=== PATIENT | male | born 1990 | race Caucasian/White ===

== ENCOUNTER 2020-11-07 20:20 | Emergency (ER) | payer MEDICAID ==
[~2020-11-07] VITALS: Ht 177.8 cm; Wt 90.9 kg
[2020-11-07 20:30] VITALS: BP 137/86
[2020-11-07] MEDS ORDERED: BUPIVACAINE HCL/PF 0.25% 10 ML VIAL SQ ONE (20:45)
[2020-11-07] MEDS ORDERED: PERTUSS(ACELL),DIPH,TET VAC/PF 0.5 ML SYRINGE IM. ONE (21:00)
== END 2020-11-07 21:40 | disposition home or self-care (01) ==
LOC: EMS 20:22
DX: S91.312A Laceration without foreign body, left foot, initial encounter (principal); W26.0XXA Contact with knife, initial encounter; Y93.89 Activity, other specified; Y92.89 Other specified places as the place of occurrence of the external cause; Y99.8 Other external cause status
CPT/HCPCS: 12001; 90471; 90715; 99283; J3490